=== PATIENT | female | born 1965 | race Two or more races ===

== ENCOUNTER 2020-12-07 06:44 | Day surgery (SDC) | payer OTHER | END 2020-12-07 19:10 | disposition home or self-care (01) | LOC: CIR.AMB 06:44 | PROVIDERS: ATTEND Orthopaedic Surgery Sports Medicine | DX: M75.121 Complete rotator cuff tear or rupture of right shoulder, not specified as traumatic (principal); M75.31 Calcific tendinitis of right shoulder; M75.41 Impingement syndrome of right shoulder; M94.211 Chondromalacia, right shoulder; M24.011 Loose body in right shoulder; Z20.822 Contact with and (suspected) exposure to COVID-19 ==